=== PATIENT | male | born 1980 | race Caucasian/White ===

== ENCOUNTER 2017-05-25 12:22 | Emergency (ER) | payer SELFPAY ==
[~2017-05-25] VITALS: Ht 190.5 cm; Wt 108.9 kg
[2017-05-25 12:55] VITALS: BP 132/80
[2017-05-25] MEDS ORDERED: AMOX500C PO (13:06)
--- NOTE | 2017-05-25 13:07 | PHYS DOC ---
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 He states he had a tooth pulled 2 months ago he felt as though the dentist did not to the job appropriately. He states that he feels as though he had destroyed the bone along the jawline on the left. Patient states that he is here today because he is having increased pain along the left molar on the left side. He denies any fever, chills or any nausea or vomiting. He denies any foul taste. Patient states his been taken Tylenol and ibuprofen for pain and discomfort which is helped. Patient states he attempted to get a dentist appointment in which she is unable to get one until September. Spoke with patient as this is May at this time he needs to try to locate a dentist that can get him in sooner. Review of Systems Review of Systems Constitutional: Denies fever or chills [] Eyes: Denies change in visual acuity, redness, or eye pain [] HENT: Denies nasal congestion or sore throat. Complaint of dental pain left lower molar area Respiratory: Denies cough or shortness of breath [] Cardiovascular: No additional information not addressed in HPI [] GI: Denies abdominal pain, nausea, vomiting, bloody stools or diarrhea [] : Denies dysuria or hematuria [] Musculoskeletal: Denies back pain or joint pain [] Integument: Denies rash or skin lesions [] Neurologic: Denies headache, focal weakness or sensory changes [] Endocrine: Denies polyuria or polydipsia [] Physical Exam Physical Exam Constitutional: Well developed, well nourished, no acute distress, non-toxic appearance. [] HENT: Normocephalic, atraumatic, bilateral external ears normal, oropharynx moist, no oral exudates, nose normal. Bilateral tympanic membranes appear to be normal. Throat with no erythematous no drainage no exudate noted. Patient with slight redness noted along the left molar on the lower part. No drainage or discharge noted from the site. Eyes: PERRLA, EOMI, conjunctiva normal, no discharge. [] Neck: Normal range of motion, no tenderness, supple, no stridor. [] Cardiovascular:Heart rate regular rhythm, no murmur [] Lungs & Thorax: No respiratory distress noted Skin: Warm, dry, no erythema, no rash. [] Back: No tenderness Extremities: No tenderness, no cyanosis, no clubbing, ROM intact, no edema. [] Neurologic: Alert and oriented X 3, normal motor function, normal sensory function, no focal deficits noted. [] Psychologic: Affect normal, judgement normal, mood normal. [] EKG EKG [] Radiology/Procedures Radiology/Procedures [] Course & Med Decision Making Course & Med Decision Making Pertinent Labs and Imaging studies reviewed. (See chart for details) Spoke with patient regards to continuing to use Tylenol or ibuprofen for fever chills generalized body aches and discomfort as well as pain. Patient will be placed on amoxicillin when he can take one tablet 4 times a day for the next 10 days. Patient was also instructed to do warm salt water mouth rinses 4 times a day and prior to bedtime. Patient was also instructed to continue to locate a physician, dentist that can get him in sooner than September. Patient agrees with discharge instructions, treatment regimens and follow-up recommendations. [] Dragon Disclaimer Dragon Disclaimer This electronic medical record was generated, in whole or in part, using a voice recognition dictation system. Departure Departure Impression: Primary Impression: Dental abscess Disposition: HOME, SELF-CARE Condition: STABLE Referrals: NO PCP (PCP) Patient Instructions: Dental Abscess Additional Instructions: Activity as tolerated. Tylenol or ibuprofen for pain and discomfort as well as fever, chills. Antibiotics as prescribed. Follow-up with the dentist within the next 1-2 weeks. Return back to emergency percent symptoms become worse. Scripts Amoxicillin (AMOXICILLIN) 500 Mg Capsule 1 CAP PO QID, #40 CAP Prov: LUZ THOMASON APRN 05/25/17 LUZ THOMASON DIRECTOR [employer]IN[employer] May 25, 2017 13:07
== END 2017-05-25 13:08 | disposition home or self-care (01) ==
LOC: ER 12:22
DX: K04.7 Periapical abscess without sinus (principal)
CPT/HCPCS: 99283